=== PATIENT | male | born 1990 | race Caucasian/White ===

== ENCOUNTER 2023-08-21 20:13 | Emergency (ER) | payer SELFPAY ==
[2023-08-21] MEDS ORDERED: Sodium Chloride 0.9% 10 ML Syringe FLUSH PRN (20:40)
[2023-08-21] MEDS ORDERED: Ketorolac 15 MG/ML SDV IVPUSH ONE (20:58)
== END 2023-08-21 23:48 | disposition home or self-care (01) ==
LOC: JD.ED 20:13
DX: S29.011A Strain of muscle and tendon of front wall of thorax, initial encounter (principal); Z91.018 Allergy to other foods; Z88.6 Allergy status to analgesic agent; Z91.048 Other nonmedicinal substance allergy status; X50.0XXA Overexertion from strenuous movement or load, initial encounter
CPT/HCPCS: 71046; 71046-26; 93005; 93010; 96374; 99283; 99285-25; J1885